=== PATIENT | male | born 1955 | race Caucasian/White ===

== ENCOUNTER → 2023-05-10 08:30 | Outpatient (REF) | payer MEDICARE, OTHER, SELFPAY ==
[2023-05-10 10:52] LABS: Hematocrit 47.5 % (39.0-52.0); Hemoglobin 16.1 g/dL (13.0-18.0); Mean Corp Hgb Conc. 33.9 g/dL (33.0-37.0); Mean Corpuscular Hgb 31.8 pg (27.0-31.0); Mean Corpuscular Volume 93.9 fL (80.0-94.0); Mean Platelet Volume 10.2 fL (7.4-10.4); Platelet Count 225 10^3/uL (130-400); Red Blood Cell Count 5.06 10^6/uL (4.70-6.10); Red Cell Dist. Width 12.4 % (11.5-14.5); White Blood Cell Count 3.9 10^3/uL (4.8-10.8)
[2023-05-10 11:20] LABS: Blood Urea Nitrogen 25 mg/dl (9-20); Calcium 8.7 mg/dl (8.4-10.2); Carbon Dioxide 28 mmol/L (22-30); Chloride 100 mmol/L (98-107); Glucose 77 mg/dl (70-99); Potassium 4.3 mmol/L (3.5-5.1); Sodium 136 mmol/L (135-145); eGFR > 60.00
== END ==
LOC: SDSPAT 08:30
PROVIDERS: ATTENDING PHYSICIAN Otolaryngology; FAMILY PHYSICIAN Family Medicine
DX: Z01.818 Encounter for other preprocedural examination (principal)
CPT/HCPCS: 36415; 80048; 85027; 93005

== ENCOUNTER 2023-05-23 06:13 | Day surgery (SDC) | payer MEDICARE, OTHER, SELFPAY ==
[2023-05-10 11:06] VITALS: BMI 28.4
[2023-05-23] VITALS (7 sets, daily range): BP systolic 117–132; BP diastolic 70–85; BMI 28.4
[2023-05-23] MEDS: NORMOSOL-R 1000 IV (10:29)
== END 2023-05-23 12:57 | disposition home or self-care (01) ==
LOC: SDS 06:13
PROVIDERS: ATTENDING PHYSICIAN Otolaryngology
DX: J34.2 Deviated nasal septum (principal); J34.3 Hypertrophy of nasal turbinates; J34.89 Other specified disorders of nose and nasal sinuses
CPT/HCPCS: 30520; 30140

== ENCOUNTER 2024-02-28 13:04 | Emergency (ER) | payer MEDICARE, OTHER, SELFPAY ==
[2024-02-28 13:16] VITALS: BP 126/83
[2024-02-28 13:56] LABS: % Basophils 0.5 % (0-2); % Eosinophils 3.1 % (0-6); % Immature Granulocytes 0.3 % (0-0.5); % Lymphocytes 24.3 % (20.5-51.1); % Monocytes 12.7 % (1.7-9.3); % Neutrophils 59.1 % (42.2-75.2); Absolute Eosinophils 0.1 10^3/uL (0-0.7); Absolute Lymphocytes 0.9 10^3/uL (1.2-3.4); Absolute Monocytes 0.5 10^3/uL (0.1-0.6); Absolute Neutrophils 2.3 10^3/uL (1.4-6.5); Hematocrit 47.8 % (39.0-52.0); Hemoglobin 16.8 g/dL (13.0-18.0); Mean Corp Hgb Conc. 35.1 g/dL (33.0-37.0); Mean Corpuscular Hgb 34.3 pg (27.0-31.0); Mean Corpuscular Volume 97.6 fL (80.0-94.0); Mean Platelet Volume 10.6 fL (7.4-10.4); Nucleated Red Blood Cells % 0 % (-); Platelet Count 190 10^3/uL (130-400); Red Cell Dist. Width 12.5 % (11.5-14.5); White Blood Cell Count 3.9 10^3/uL (4.8-10.8)
[2024-02-28 14:08] LABS: ALT (SGPT) 37 U/L (0-50); AST (SGOT) 47 U/L (17-59); Albumin 4.1 g/dl (3.5-5.0); Alkaline Phosphatase 41 U/L (38-126); Blood Urea Nitrogen 25 mg/dl (9-20); Calcium 8.6 mg/dl (8.4-10.2); Carbon Dioxide 28 mmol/L (22-30); Chloride 101 mmol/L (98-107); Glucose 118 mg/dl (70-99); Lipase 130 U/L (23-300); Potassium 4.8 mmol/L (3.5-5.1); Sodium 138 mmol/L (135-145); Total Bilirubin 0.8 mg/dl (0.2-1.3); Total Protein 6.9 g/dl (6.3-8.2); eGFR > 60.00
[2024-02-28 14:20] LABS: Troponin I < 0.012 ng/ml
--- NOTE | 2024-02-28 15:29 | ED.GENMED ---
History of Present Illness
<Radha Webster PA-C - Last Filed: 02/28/24 17:43>
General
Chief Complaint: Fainting/Passed Out
Source: patient
Exam Limitations: none
Time Seen by Provider: 02/28/24 15:02
Nursing documentation reviewed up to this point in time: agreed with
History of Present Illness
History of Present Illness:
Patient is a 69 y.o male presenting after near syncopal event earlier today. Patient states around 11:30 AM he was sitting in his desk chair looking at his computer when he had acute onset dizziness and sense that the room was spinning. This
lasted approximately 5 minutes and was followed by nausea and 1 episode of vomiting. He then became extremely diaphoretic. There was no loss of consciousness. Patient then decided to drive himself to the emergency department for evaluation. At
this time�patient states he does not feel completely back to his baseline, although much better than earlier. He has some mild nausea and bloating sensation. He denies any current dizziness, severe headache, chest pain, shortness breath.
Patient denies any associated chest pain, shortness of breath, diplopia, dysarthria, ataxia prior to near-syncopal event.
Past History
<Radha Webster PA-C - Last Filed: 02/28/24 17:43>
Past History
ED Past Medical History: Other (Small intestine bacterial overgrowth)
ED Past Surgical History: Orthopedic (Lumbar laminectomy, right hip replacement)
Review of Systems
<Radha Webster PA-C - Last Filed: 02/28/24 17:43>
Review of Systems
Allergies reviewed?: Yes
All Other Systems: ROS reviewed and negative except as documented in HPI and ROS
Phy Exam
<Radha Webster PA-C - Last Filed: 02/28/24 17:43>
Physical Exam
Physical Exam:
Vitals: Patient's vital signs are stable. Afebrile
General: Patient is well appearing, no acute distress. Nontoxic appearing
Skin: Warm and dry, no rashes or lesions
Head: Normocephalic, atraumatic
Eyes: Sclera nonicteric. EOMs intact. Pupils equal round reactive light bilaterally. Visual martin intact no nystagmus.
Throat: Protecting airway
Neck: Normal ROM, no cervical spine tenderness, no meningismus
Cardiac: Regular rate and rhythm, no murmurs.
Pulm: Normal respiratory effort, no wheezes, rales, rhonchi heard on exam.
Abdomen: Abdomen soft. No abdominal tenderness.
Extremities: No evidence of cyanosis or edema. Palpable PT pulses bilaterally.
Neuro: AAOx3. CN II-XII intact. No focal neurologic deficits. Steady gait. Fluid speech. Normal finger-nose.
Psychiatric: Normal affect.
Course
<Radha Webster PA-C - Last Filed: 02/28/24 17:43>
Orders/Labs/Results
Orders:
Orders
02/28/24 13:18
Electrocardiogram (*1) Urgent
Reason for Study: Chest Pain
EKG- Treatment ONCE
02/28/24 13:38
Complete Blood Count/With Diff Urgent
Comprehensive Metabolic Panel Urgent
Lipase Urgent
Troponin I Urgent
02/28/24 15:27
Ondansetron Orally Disint [Zofran Odt (Orally Disintegrating)] 4 mg PO NOW STA
02/28/24 15:56
Physical Therapy Consult [Pt Eval And Treat] Urgent
Treatment: Vertigo
Activity Level: Ambulate
Abnormal Lab Results
02/28/24
13:38
WBC 3.9 L 10^3/uL
(4.8-10.8)
MCV 97.6 H fL
(80.0-94.0)
MCH 34.3 H pg
(27.0-31.0)
MPV 10.6 H fL
(7.4-10.4)
Absolute Lymphs (auto) 0.9 L 10^3/uL
(1.2-3.4)
Monocytes % 12.7 H %
(1.7-9.3)
BUN 25 H mg/dl
(9-20)
Glucose 118 H mg/dl
(70-99)
02/28/24 13:38
02/28/24 13:38
Vital Signs
Initial and Last Documented VS:
Initial Vital Signs
Temp Pulse Resp BP Pulse Ox
97.6 F 75 16 126/83 99
02/28/24 13:16 02/28/24 13:16 02/28/24 13:16 02/28/24 13:16 02/28/24 13:16
Last Documented Vital Signs
Temp Pulse Resp BP Pulse Ox
97.6 F 82 20 136/91 99
02/28/24 17:05 02/28/24 17:05 02/28/24 17:05 02/28/24 17:05 02/28/24 17:05
Josselynlt;Hiren Rowley DO - Last Filed: 02/28/24 20:37>
Orders/Labs/Results
Orders:
Orders
02/28/24 13:18
Electrocardiogram (*1) Urgent
Reason for Study: Chest Pain
EKG- Treatment ONCE
02/28/24 13:38
Complete Blood Count/With Diff Urgent
Comprehensive Metabolic Panel Urgent
Lipase Urgent
Troponin I Urgent
02/28/24 15:27
Ondansetron Orally Disint [Zofran Odt (Orally Disintegrating)] 4 mg PO NOW STA
02/28/24 15:56
Physical Therapy Consult [Pt Eval And Treat] Urgent
Treatment: Vertigo
Activity Level: Ambulate
Abnormal Lab Results
02/28/24
13:38
WBC 3.9 L 10^3/uL
(4.8-10.8)
MCV 97.6 H fL
(80.0-94.0)
MCH 34.3 H pg
(27.0-31.0)
MPV 10.6 H fL
(7.4-10.4)
Absolute Lymphs (auto) 0.9 L 10^3/uL
(1.2-3.4)
Monocytes % 12.7 H %
(1.7-9.3)
BUN 25 H mg/dl
(9-20)
Glucose 118 H mg/dl
(70-99)
02/28/24 13:38
02/28/24 13:38
Vital Signs
Initial and Last Documented VS:
Initial Vital Signs
Temp Pulse Resp BP Pulse Ox
97.6 F 75 16 126/83 99
02/28/24 13:16 02/28/24 13:16 02/28/24 13:16 02/28/24 13:16 02/28/24 13:16
Last Documented Vital Signs
Temp Pulse Resp BP Pulse Ox
97.6 F 82 20 136/91 99
02/28/24 17:05 02/28/24 17:05 02/28/24 17:05 02/28/24 17:05 02/28/24 17:05
<Radha Webster PA-C - Last Filed: 02/28/24 17:43>
MDM/Problems Addressed
Differential Diagnosis Includes:
Not limited to: vasovagal near syncope, viral illness, COVID cardiac arrhythmia, positional vertigo, central vertigo, etc.
MDM/Problems Addressed:
69-year-old male presenting following episode of acute onset dizziness associated with nausea/vomiting and diaphoresis which has significantly improved prior to arrival to emergency department. No associated dysarthria, diplopia, ataxia. No
preceding chest pain or shortness of breath. Patient ambulating independently into emergency department. He is essentially asymptomatic at this time although with mild nausea. No current dizziness. Patient's vital signs are stable. On
exam�patient was well-appearing in no apparent distress. Cardio/pulmonary assessment unremarkable. Patient has no focal neurologic deficits. Normal cerebellar exam. He is ambulating with steady gait. Speech is fluid. He did have mild return of
symptoms after sitting straight up in bed. Differential broad although considerations include viral illness, dehydration, vasovagal near syncope. Other considerations include possible benign positional vertigo. Do not suspect central process. Do
not suspect cardiac process. will treat patient with Zofran and p.o. liquids. Will consult physical therapy for vestibular testing. Will monitor and reassess.
Chronic conditions affecting care:
N/A
Acute Exacerbation and/or Progression of Chronic Illness:
N/A
<Radha Webster PA-C - Last Filed: 02/28/24 17:43>
*Pulse Oximetry
Patient hypoxic: no
*EKG
Interpreted by ED Provider?: Yes
EKG Intrepretation Date: 02/28/24
Interpretation: normal
Comparison EKG: no changes
Heart Rate: 74
Rate: normal
Rhythm: sinus
Hurley: normal axis
Interval: normal QT interval
QRS Pattern: low voltage
Ischemia: no ischemia
*[place] Interpretation
Rate: [place]- N/A
*Critical Care Note
Total Time (30-74mins, 75-104mins- exclusive of procedures): Not Applicable
<Radha Webster PA-C - Last Filed: 02/28/24 17:43>
Patient Management
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
<Radha Webster PA-C - Last Filed: 02/28/24 17:43>
Update Note
Update Note:
Update 5 PM: Physical therapy completed assessment and does report positional vertigo symptoms. Symptoms are reproducible to the left side. They did perform 1 Karol maneuver although then patient became mildly symptomatic and he did not tolerate
any more. On my reassessment�patient is sitting comfortably in chair and well-appearing. He is ambulating with steady gait. Suspect likely BPPV. Will discharge patient with Zofran, meclizine as needed. Will provide prescription for outpatient
vestibular therapy with PT. Return precautions discussed. Patient will follow with primary care, as well.
ED Attending Note
<Radha Webster PA-C - Last Filed: 02/28/24 17:43>
-
Portions of this chart may have been created with voice recognition software.� Occasional wrong word or��sound alike� substitutions may have occurred due to the inherent limitations of voice recognition software.
<Hiren Rowley DO - Last Filed: 02/28/24 20:37>
ED Attending Note
Patient seen and examined by attending physician: Yes
I performed the substantive portion of visit, reviewed & personally made and approve the management plan that is documented in note by myself or KOSTA.: Yes
ED Attending Note:
Patient is a 69-year-old physically fit male who presents after an episode of vertigo today with nausea vomiting and diffuse diaphoresis. It did not last very long. Patient denies neck or head pain. Patient had a visual or speech difficulties.
Patient denies any focal weakness. Patient denies any recent injuries. Patient denied any tinnitus or decreased hearing. Patient denies any nasal congestion, sore throat or cough. On physical exam the patient is in no distress and seemed to have
horizontal nystagmus with extraocular movements that elicited similar symptoms. Patient is normocephalic. Neck is supple without bruit. Heart is regular lungs are clear. 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 The rest of the patient's neuroexam is unremarkable. Patient seen by PT. Will treat as peripheral vertigo..
Discharge Plan
Departure
Patient Disposition: Home (Routine Discharge)
Date of Disposition: 02/28/24
Time of Disposition: 16:56
Patient with high blood pressure during this ER visit?: No
Condition: Good
Covid-19: Not Applicable
Discharge Problem:
Positional vertigo
Instructions: Vertigo ED
Prescriptions:
New
ondansetron 4 mg tablet,disintegrating
4 mg PO Q8H PRN (Reason: nausea and vomiting) Qty: 10 0RF
meclizine 12.5 mg tablet
12.5 mg PO TID PRN (Reason: dizziness) Qty: 10 0RF
No Action
Arginine/Citrulline
1,000 mg PO DAILY
L-Tyrosine 500 MG tablet
0.5 g PO DAILY
ascorbic acid (vitamin C) [Vitamin C] 500 MG tablet
2 g PO DAILY
buspirone 10 MG tablet
10 mg PO DAILY
sertraline 25 MG tablet
100 mg PO DAILY
zinc 50 MG tablet
30 mg PO Q3W
taurine 500 MG capsule
3 g PO DAILY
coenzyme [id number] [Co Q-10 (with Vit E)] 1 EACH capsule
1 cap PO DAILY
Rx Instructions:
100 mg
glucosamine HCl 1,500 MG tablet
1,000 mg PO DAILY
alpha lipoic acid 300 MG capsule
500 mg PO DAILY
cholecalciferol (vitamin D3) 2,000 UNITS tablet
5,000 unit PO .6DAYS PER WK
thyroid (pork) [GOLF INSTRUCTOR Thyroid] 60 MG tablet
60 mg PO DAILY
omega 8-dqu-eor-fish oil [Fish Oil] 1 EACH capsule
3 cap PO DAILY
Rx Instructions:
3 grams
multivitamin with folic acid [Tab-A-Karolina] 1 TABLET tablet
1 tab PO DAILY
Digestive Enzyme (acidoph,pec) 1 EACH tablet
1 ea PO DAILY
Compounded Testosterone Cream
1 applic topical DAILY
Patient Comments:
05/06/18 per patient he applies 1 inch of cream daily he thinks it is 150mg
Curcumin
2,000 mg PO DAILY
Magnesium
1,000 mg PO DAILY
Nicotinamine Robiside
1 g PO DAILY
zolpidem [Ambien] 10 mg Tablet
10 mg PO HS
gabapentin
50 mg PO .1600
creatine monohydrate
2 g PO DAILY
hydrocodone-acetaminophen [hydrocodone-acetaminophen] 5-325 mg tablet
1 - 2 tab PO Q4HPRN PRN (Reason: Mod-severe pain) 7 Days Qty: 30 0RF
cefuroxime axetil [cefuroxime axetil] 500 mg tablet
500 mg PO BID 7 Days Qty: 14 0RF
metformin 500 mg Tablet
500 mg PO DAILY
buspirone 10 mg Tablet
20 mg PO DAILY
gabapentin 100 mg Tablet
100 mg PO DAILY
acetaminophen [Tylenol Ex Str Arthritis Pain] 500 mg Tablet
1,000 mg PO Q6H PRN (Reason: pain)
Referrals:
NONE,* [Family Provider] -
Activity Restrictions/Additional Instructions:
RETURN TO THE EMERGENCY DEPARTMENT WITH ANY SEVERE HEADACHE, INTRACTABLE NAUSEA/VOMITING, CHANGES IN VISION, DIFFICULTIES WITH SPEECH, DIFFICULTY WALKING, WORSENING IN CURRENT SYMPTOMS, OR ANY OTHER CONCERNS
-As discussed�it is likely you have a positional vertigo. This was treated with physical therapy in the emergency department. You have been given a for outpatient vestibular therapy with PT
-2 prescriptions have been sent to your pharmacy. You can take them as needed for persistent dizziness/nausea.
-Stay well-hydrated. Get plenty of rest.
-Follow with your primary care for further evaluation/manage
Monitor your symptoms closely and return to the emergency department with any acute worsening/new symptoms or any other concerns
Interventions
Interventions:
*Risk Screen - Suicide Last Done: 02/28/24 13:16
*General Assessment Last Done: 02/28/24 16:00
*Neglect/Abuse Screening Last Done: 02/28/24 13:16
ED- Fall Risk Assessment Last Done: 02/28/24 16:00
*ED COVID-19 Vaccine History Last Done: 02/28/24 16:00
*Nursing Disposition Last Done: 02/28/24 17:05
ED- Cardiac Assessment Last Done: 02/28/24 16:00
ED- Neurological Assessment Last Done: 02/28/24 16:00
Discharge Date and Time
Discharge Date/Time: 02/28/24 17:08
Print Language: KYRGYZ
[2024-02-28 16:00] VITALS: BP 140/65; BMI 25.8
--- NOTE | 2024-02-28 16:15 | EDRN ---
physical therapy currently at the pts bedside
[2024-02-28 17:05] VITALS: BP 136/91
== END 2024-02-28 17:08 | disposition home or self-care (01) ==
LOC: EMR 13:04
PROVIDERS: Emergency Medicine; EMERGENCY PHYSICIAN Emergency Medicine
DX: H81.10 Benign paroxysmal vertigo, unspecified ear (principal); Z96.641 Presence of right artificial hip joint
CPT/HCPCS: 99284; 80053; 83690; 84484; 85025; 93005

== ENCOUNTER → 2024-04-14 12:07 | Outpatient (REF) | payer MEDICARE, OTHER, SELFPAY | LOC: MRI 12:07 | PROVIDERS: ATTENDING PHYSICIAN Orthopaedic Surgery Sports Medicine; FAMILY PHYSICIAN Family Medicine | DX: M54.16 Radiculopathy, lumbar region (principal) | CPT/HCPCS: 72148 ==

== ENCOUNTER → 2024-04-22 12:08 | Outpatient (REF) | payer MEDICARE, OTHER, SELFPAY | LOC: MRI 12:08 | PROVIDERS: ATTENDING PHYSICIAN Orthopaedic Surgery Sports Medicine; FAMILY PHYSICIAN Family Medicine | DX: M25.562 Pain in left knee (principal) | CPT/HCPCS: 73721 ==

== ENCOUNTER → 2024-05-16 11:05 | Outpatient (REF) | payer MEDICARE, OTHER, SELFPAY | LOC: RAD 11:05 | PROVIDERS: ATTENDING PHYSICIAN Internal Medicine Gastroenterology | DX: K76.9 Liver disease, unspecified (principal); R14.0 Abdominal distension (gaseous); R93.5 Abnormal findings on diagnostic imaging of other abdominal regions, including retroperitoneum | CPT/HCPCS: 74177; Q9967 ==